=== PATIENT | male | born 1960 | race Caucasian/White ===

== ENCOUNTER 2019-04-26 06:28 | Inpatient (IN) | payer MEDICARE ==
[~2019-04-26] VITALS: Ht 185.4 cm; Wt 83.6 kg
--- NOTE | 2019-04-26 07:00 | NUR ---
REPORT TO NOE CASAS
--- NOTE | 2019-04-26 07:06 | NUR ---
BEDSIDE REPORT FROM MURTAZA RN, PT RESTING IN [facility]. AWAITING ORDERS FROM
[2019-04-26] MEDS ORDERED: DILTIAZEM 125 MG in SODIUM CHLORIDE 0.9% 100 ML IV SCH (07:13)
[2019-04-26] MEDS ORDERED: DILTIAZEM 5 MG/ML, 5ML ONE (07:28)
[2019-04-26] MEDS ORDERED: LORazepam 2 MG/ML, 1ML ONE (07:28)
[2019-04-26] MEDS ORDERED: LORazepam 2 MG/ML, 1ML IVPush ONE (07:30)
[2019-04-26] MEDS ORDERED: DILTIAZEM 5 MG/ML, 5ML IV ONE (07:30)
[2019-04-26] MEDS ORDERED: SODIUM CHLORIDE FLUSH 10ML SYR IVF ONE (07:30)
[2019-04-26 07:32] LABS: BASOPHILS # (AUTO) 0.04 x10^3/uL (0-0.1); BASOPHILS % (AUTO) 0 % (0-1); EOSINOPHILS # (AUTO) 0.03 x10^3/uL (0-0.4); EOSINOPHILS % (AUTO) 0 % (1-7); LYMPHOCYTES % (AUTO) 17 % (22-44); MD NO; MEAN CORPUSCULAR HEMOGLOBIN 31.8 pg (27.5-34.5); MEAN CORPUSCULAR HGB CONC 32.4 g/dL (33.2-36.2); MEAN CORPUSCULAR VOLUME 98.2 fL (81-97); MEAN PLATELET VOLUME 9.3 fL (7.4-10.4); MONOCYTES # (AUTO) 0.93 x10^3/uL (0.2-0.8); MONOCYTES % (AUTO) 8 % (2-9); NEUTROPHILS # (AUTO) 8.95 x10^3/uL (1.8-6.8); NEUTROPHILS % (AUTO) 74 % (42-75); PLATELET COUNT 334 x10^3/uL (130-400); RED BLOOD COUNT 4.62 x10^6/uL (4.38-5.82); RED CELL DISTRIBUTION WIDTH 14.5 % (9.4-14.8)
--- NOTE | 2019-04-26 07:37 | NUR ---
PT RSETING IN GURNEY, CARDIZEM AND ATIVAN GIVEN PER AUG, PT ON MONITOR. AWAITING CARDIZEM GTT FROM PHARMACY
[2019-04-26 07:40] LABS: ALBUMIN 3.2 g/dL (3.4-5.0); ANION GAP 6 mmol/L (5-15); CALCIUM 8.7 mg/dL (8.5-10.1); CHLORIDE 107 mmol/L (98-107); CREATININE 0.96 mg/dL (0.7-1.3)
[2019-04-26 07:45] LABS: TROPONIN I 0.084 ng/mL (0.000-0.045)
[2019-04-26 08:05] LABS: INTERNATIONAL NORMALIZED RATIO 4.44 (0.93-1.1)
--- NOTE | 2019-04-26 08:34 | NUR ---
PT RESTING IN [facility] GTT INFUSING. NO NEEDS AT THIS TIME. PT ON MONITOR
[2019-04-26] MEDS ORDERED: LISI5TAB7 PO (09:13)
[2019-04-26] MEDS ORDERED: MAGN400T36 PO (09:13)
[2019-04-26] MEDS ORDERED: UBID10CA5 PO (09:13)
[2019-04-26] MEDS ORDERED: WARF7.5T46 PO (09:13)
[2019-04-26] MEDS ORDERED: METO25TA2 PO (09:13)
[2019-04-26] MEDS ORDERED: TRAZ50TA66 PO (09:13)
[2019-04-26] MEDS ORDERED: SPIR25TA5 PO (09:13)
[2019-04-26] MEDS ORDERED: ZINC220C5 PO (09:13)
--- NOTE | 2019-04-26 09:57 | NUR ---
report to Danette LIU
[2019-04-26 10:32] VITALS: BP 119/85
[2019-04-26 10:58] VITALS: BP 110/65
[2019-04-26] MEDS ORDERED: ONDANSETRON 2MG/ML, 2ML IVPush PRN (11:30)
[2019-04-26] MEDS ORDERED: ONDANSETRON ODT 4 MG PO PRN (11:30)
[2019-04-26] MEDS ORDERED: SPIRONOLACTONE 25 MG TABLET PO SCH (11:30)
[2019-04-26] MEDS: DILTIAZEM 125 MG in SODIUM CHLORIDE 0.9% 100 ML IV SCH (11:30)
[2019-04-26] MEDS ORDERED: ACETAMINOPHEN 325 MG TABLET PO PRN (11:30)
[2019-04-26 11:58] LABS: FREE T4 (FREE THYROXINE) 1.44 ng/dL (0.76-1.46)
[2019-04-26] MEDS ORDERED: HOLD MEDICATION MC PRN (12:00)
[2019-04-26] MEDS: METOPROLOL SUCCINATE 25 MG TAB.ER.24H PO SCH (13:55)
[2019-04-26 14:14] LABS: TROPONIN I 0.061 ng/mL (0.000-0.045)
[2019-04-26 14:28] VITALS: BP 129/91
[2019-04-26] MEDS: hydrOXyzine 50MG TABLET PO PRN (17:10)
[2019-04-26 20:31] LABS: TROPONIN I 0.062 ng/mL (0.000-0.045)
[2019-04-26] MEDS: TRAZODONE 50MG TABLET PO SCH (20:31)
[2019-04-26 20:38] VITALS: BP 110/74
[2019-04-26] MEDS ORDERED: METO50TA82 PO (22:19)
[2019-04-26] MEDS ORDERED: ZOLP-413 PO (22:19)
[2019-04-26] MEDS ORDERED: MULT-658 PO (22:19)
[2019-04-26] MEDS: TEMAZEPAM 30 MG CAPSULE PO PRN (22:27)
[2019-04-27 03:16] VITALS: BP 115/76
[2019-04-27 05:43] LABS: BASOPHILS # (AUTO) 0.12 x10^3/uL (0-0.1); BASOPHILS % (AUTO) 1 % (0-1); EOSINOPHILS # (AUTO) 0.14 x10^3/uL (0-0.4); EOSINOPHILS % (AUTO) 1 % (1-7); LYMPHOCYTES # (AUTO) 2.12 x10^3/uL (1-3.4); LYMPHOCYTES % (AUTO) 20 % (22-44); MD NO; MEAN CORPUSCULAR HEMOGLOBIN 31.9 pg (27.5-34.5); MEAN CORPUSCULAR HGB CONC 32.5 g/dL (33.2-36.2); MEAN CORPUSCULAR VOLUME 98.3 fL (81-97); MEAN PLATELET VOLUME 8.8 fL (7.4-10.4); MONOCYTES # (AUTO) 0.83 x10^3/uL (0.2-0.8); MONOCYTES % (AUTO) 8 % (2-9); NEUTROPHILS # (AUTO) 7.48 x10^3/uL (1.8-6.8); NEUTROPHILS % (AUTO) 70 % (42-75); PLATELET COUNT 282 x10^3/uL (130-400); RED BLOOD COUNT 4.33 x10^6/uL (4.38-5.82); RED CELL DISTRIBUTION WIDTH 14.4 % (9.4-14.8)
[2019-04-27 05:56] LABS: ALBUMIN 2.9 g/dL (3.4-5.0); ANION GAP 7 mmol/L (5-15); CALCIUM 8.5 mg/dL (8.5-10.1); CHLORIDE 107 mmol/L (98-107)
[2019-04-27 06:00] LABS: ALANINE AMINOTRANSFERASE 383 U/L (12-78); ALKALINE PHOSPHATASE 121 U/L (45-117); BILIRUBIN,TOTAL 0.7 mg/dL (0.2-1.0); CHOL/HDL RATIO 6.4; CHOLESTEROL, TOTAL 161 mg/dL (140-239); CREATININE 0.76 mg/dL (0.7-1.3); HDL CHOL % 16 % (26-37); HDL CHOLESTEROL (DIRECT) 25 mg/dL (40-60); LDL CHOLESTEROL,CALCULATED 123 mg/dL (54-169); LDL/HDL RATIO 4.9 (0.5-3.0); TOTAL PROTEIN 6.1 g/dL (6.4-8.2); TRIGLYCERIDES 67 mg/dL (50-200); VLDL CHOLESTEROL 13 mg/dL (0-25)
[2019-04-27 06:19] LABS: INTERNATIONAL NORMALIZED RATIO 3.09 (0.93-1.1); PROTHROMBIN TIME 31.1 Seconds (9.6-11.5)
[2019-04-27 07:08] VITALS: BP 122/89
[2019-04-27] MEDS: SPIRONOLACTONE 25 MG TABLET PO SCH (10:02)
[2019-04-27] MEDS: LISINOPRIL 5 MG TABLET PO SCH (10:03)
[2019-04-27] MEDS: METOPROLOL SUCCINATE 25 MG TAB.ER.24H PO SCH (10:04)
[2019-04-27] MEDS: DILTIAZEM 125 MG in SODIUM CHLORIDE 0.9% 100 ML IV SCH (10:49)
[2019-04-27 14:04] VITALS: BP 128/88
[2019-04-27] MEDS: hydrOXyzine 50MG TABLET PO PRN (14:29)
[2019-04-27] MEDS: DILTIAZEM 30 MG TABLET PO SCH ×2 (16:43→20:21)
[2019-04-27] MEDS ORDERED: WARFARIN 2.5 MG TABLET PO-COUM ONE (18:00)
[2019-04-27 18:56] VITALS: BP 112/80
[2019-04-27] MEDS: TRAZODONE 50MG TABLET PO SCH (20:21)
[2019-04-27] MEDS: TEMAZEPAM 30 MG CAPSULE PO PRN (21:40)
[2019-04-28 03:25] VITALS: BP 103/66
[2019-04-28 05:39] LABS: BASOPHILS # (AUTO) 0.07 x10^3/uL (0-0.1); BASOPHILS % (AUTO) 1 % (0-1); EOSINOPHILS # (AUTO) 0.16 x10^3/uL (0-0.4); EOSINOPHILS % (AUTO) 1 % (1-7); LYMPHOCYTES # (AUTO) 2.63 x10^3/uL (1-3.4); LYMPHOCYTES % (AUTO) 21 % (22-44); MD NO; MEAN CORPUSCULAR HEMOGLOBIN 32.1 pg (27.5-34.5); MEAN CORPUSCULAR HGB CONC 31.9 g/dL (33.2-36.2); MEAN CORPUSCULAR VOLUME 100.4 fL (81-97); MEAN PLATELET VOLUME 8.8 fL (7.4-10.4); MONOCYTES % (AUTO) 9 % (2-9); NEUTROPHILS # (AUTO) 8.52 x10^3/uL (1.8-6.8); NEUTROPHILS % (AUTO) 68 % (42-75); PLATELET COUNT 293 x10^3/uL (130-400); RED BLOOD COUNT 4.44 x10^6/uL (4.38-5.82); RED CELL DISTRIBUTION WIDTH 14.5 % (9.4-14.8)
[2019-04-28 05:43] LABS: INTERNATIONAL NORMALIZED RATIO 2.33 (0.93-1.1); PROTHROMBIN TIME 23.7 Seconds (9.6-11.5)
[2019-04-28 05:49] LABS: ANION GAP 5 mmol/L (5-15); CALCIUM 8.8 mg/dL (8.5-10.1); CHLORIDE 104 mmol/L (98-107); CREATININE 0.87 mg/dL (0.7-1.3)
[2019-04-28 07:01] VITALS: BP 122/85
[2019-04-28] MEDS ORDERED: METOPROLOL SUCCINATE 100 MG TAB.ER.24H PO SCH (07:30)
[2019-04-28] MEDS: DILTIAZEM 30 MG TABLET PO SCH (07:50)
[2019-04-28] MEDS: LISINOPRIL 5 MG TABLET PO SCH (07:50)
[2019-04-28] MEDS: SPIRONOLACTONE 25 MG TABLET PO SCH (07:50)
[2019-04-28] MEDS: DILTIAZEM 60 MG TABLET PO SCH ×2 (08:28→15:08)
[2019-04-28] MEDS: hydrOXyzine 50MG TABLET PO PRN (11:02)
[2019-04-28] MEDS ORDERED: DILTIAZEM 125 MG in SODIUM CHLORIDE 0.9% 100 ML IV SCH (11:30)
[2019-04-28 12:51] VITALS: BP 128/80
[2019-04-28] MEDS ORDERED: MAGNESIUM SULFATE PMX 2GM/50ML 50 ML IV ONE (15:00)
[2019-04-28] MEDS ORDERED: LORazepam 2 MG/ML, 1ML IM PRN (15:00)
[2019-04-28] MEDS ORDERED: WARFARIN 5 MG TABLET PO-COUM ONE (18:00)
[2019-05-05] MEDS ORDERED: LORA-445 PO (02:44)
[2019-05-09] MEDS ORDERED: ASPI-515 PO (14:08)
[2019-05-09] MEDS ORDERED: METO50TA82 PO (14:08)
[2019-05-09] MEDS ORDERED: CEFD300C37 PO (14:08)
[2019-05-09] MEDS ORDERED: DIGO125T PO (14:08)
[2019-05-09] MEDS ORDERED: DOXY100T PO (14:08)
== END 2019-04-28 18:03 | disposition left against medical advice (07) | DRG 309 ==
LOC: ED 07:17 → EDIP 09:39 → 5SO 10:08
PROVIDERS: ADMIT Internal Medicine; ATTEND Family Medicine
DX: I48.20 Chronic atrial fibrillation, unspecified (principal); D68.59 Other primary thrombophilia; J98.11 Atelectasis; I24.8 Other forms of acute ischemic heart disease; D72.829 Elevated white blood cell count, unspecified; F41.9 Anxiety disorder, unspecified; G47.00 Insomnia, unspecified; I11.0 Hypertensive heart disease with heart failure; I50.9 Heart failure, unspecified; Z79.01 Long term (current) use of anticoagulants; Z86.711 Personal history of pulmonary embolism
CPT/HCPCS: 36415; 71045; 80048; 80053; 80061; 80069; 82040; 83735; 83880; 84439; 84443; 84484; 85025; 85610; 93005; 93306; G0378; J2060; J3475

== ENCOUNTER 2019-09-04 15:46 | Inpatient (IN) | payer MEDICARE ==
[~2019-09-04] VITALS: Ht 185.4 cm; Wt 96.5 kg
[~2019-09-04 15:46] MED LIST: ASPI-515 PO; CEFD300C37 PO; DIGO125T85 PO; DOXY100T PO; LISI5TAB7 PO; LORA-445 PO; MAGN400T36 PO; METO25TA2 PO; METO50TA82 PO; MULT-658 PO; SPIR25TA5 PO; TRAZ50TA66 PO; UBID10CA5 PO; WARF7.5T46 PO; ZINC220C7 PO; ZOLP-413 PO
--- NOTE | 2019-09-04 16:05 | NUR ---
HX CHF, "RECENTLY RAN OUT OF LASIX A FEW DAYS AGO. I FEEL THE FLUID BUILDING." 4-5 word sentences, coarse to bases bialterally
[2019-09-04] MEDS ORDERED: SODIUM CHLORIDE FLUSH 10ML SYR IVF ONE (16:30)
[2019-09-04 16:53] LABS: BASOPHILS # (AUTO) 0.03 x10^3/uL (0-0.1); BASOPHILS % (AUTO) 1 % (0-1); EOSINOPHILS # (AUTO) 0.13 x10^3/uL (0-0.4); EOSINOPHILS % (AUTO) 2 % (1-7); LYMPHOCYTES # (AUTO) 1.53 x10^3/uL (1-3.4); LYMPHOCYTES % (AUTO) 23 % (22-44); MD NO; MEAN CORPUSCULAR HEMOGLOBIN 30.8 pg (27.5-34.5); MEAN CORPUSCULAR HGB CONC 32.1 g/dL (33.2-36.2); MEAN CORPUSCULAR VOLUME 95.9 fL (81-97); MEAN PLATELET VOLUME 8.1 fL (7.4-10.4); MONOCYTES # (AUTO) 0.51 x10^3/uL (0.2-0.8); MONOCYTES % (AUTO) 8 % (2-9); NEUTROPHILS # (AUTO) 4.52 x10^3/uL (1.8-6.8); NEUTROPHILS % (AUTO) 67 % (42-75); PLATELET COUNT 195 x10^3/uL (130-400); RED BLOOD COUNT 5.61 x10^6/uL (4.38-5.82); RED CELL DISTRIBUTION WIDTH 20.7 % (9.4-14.8)
[2019-09-04 17:05] LABS: ALANINE AMINOTRANSFERASE 28 U/L (12-78); ANION GAP 4 mmol/L (5-15); CALCIUM 8.9 mg/dL (8.5-10.1); CHLORIDE 99 mmol/L (98-107); CREATININE 0.95 mg/dL (0.7-1.3)
[2019-09-04 17:09] LABS: ALKALINE PHOSPHATASE 124 U/L (45-117); BILIRUBIN,TOTAL 1.3 mg/dL (0.2-1.0); TOTAL PROTEIN 7.1 g/dL (6.4-8.2); TROPONIN I 0.104 ng/mL (0.000-0.045)
[2019-09-04] MEDS ORDERED: NITROGLYCERIN OINT 2%, 1GM TP ONE ×2 (17:30→18:05)
[2019-09-04] MEDS ORDERED: FUROSEMIDE 40 MG/4 ML IVPush ONE (17:30)
--- NOTE | 2019-09-04 17:49 | NUR ---
Piv placed Attempted to complete med recc-patient unsure of meds/doses Called pharmacy (ta in [place])- patient only taking: lasix 40 qday, xanax 1mg qday prn, digoxin 125mch qday, carvedilol 6.25mg bid. Patient has not picked up his ordered aspirin, lisinopril, spiranolactone, aspirin, potassium or warfarin in months Additionally patient has been taking 40mg of lasix BID instead of ordered qday "for weeks"
[2019-09-04] MEDS ORDERED: ASPIRIN 81 MG TABLET CHEW PO ONE (18:00)
[2019-09-04] MEDS ORDERED: ALPR0.5T PO (18:00)
[2019-09-04] MEDS ORDERED: CARV6.2512 PO (18:00)
[2019-09-04] MEDS ORDERED: ENOXAPARIN 100 MG/ML SQ ONE (18:00)
[2019-09-04] MEDS ORDERED: FUROSEMIDE 40 MG/4 ML ONE (18:04)
[2019-09-04] MEDS ORDERED: ASPIRIN 81 MG TABLET CHEW ONE (18:05)
[2019-09-04] MEDS ORDERED: ENOXAPARIN 100 MG/ML ONE (18:05)
--- NOTE | 2019-09-04 18:30 | NUR ---
IV MEDICATIONS GIVEN WITHOUT DIFF. PT RESTING IN BED. ADMITTING DOCTOR AT BEDSIDE TO PERFORM ASSESSMENT.
[2019-09-04] MEDS ORDERED: GUAIFENESIN/DM 200-20MG, 10ML UDC PO PRN (19:00)
[2019-09-04] MEDS ORDERED: ONDANSETRON ODT 4 MG PO PRN (19:00)
[2019-09-04] MEDS ORDERED: BISACODYL 10 MG SUPP PR PRN (19:00)
[2019-09-04] MEDS ORDERED: ACETAMINOPHEN 325 MG TABLET PO PRN (19:00)
[2019-09-04] MEDS ORDERED: POLYETHYLENE GLYCOL 17 GM PACKET PO PRN (19:00)
[2019-09-04 19:13] LABS: INTERNATIONAL NORMALIZED RATIO 1.32 (0.93-1.1)
--- NOTE | 2019-09-04 19:30 | NUR ---
PT RESTING. AWAITING ROOM FOR TRANSPORT.
--- NOTE | 2019-09-04 20:25 | NUR ---
REPORT CALLED TO LENO LIU. PT HAD A BM ACCIDENT IN BED. RN IN TO CLEAN PATIENT. PT NOW READY FOR TRANSPORT.
[2019-09-04] MEDS: CARVEDILOL 6.25 MG TABLET PO SCH (21:29)
[2019-09-04] MEDS ORDERED: WARFARIN 7.5 MG TABLET PO-COUM ONE (21:30)
[2019-09-04] MEDS: CEFTRIAXONE PMX 1GM/50ML 50 ML IV SCH (21:30)
[2019-09-04] MEDS: SODIUM CHLORIDE FLUSH 10ML SYR IVF SCH (21:30)
[2019-09-04 21:46] VITALS: BP 115/71
[2019-09-04] MEDS: AZITHROMYCIN 500 MG in SODIUM CHLORIDE 0.9% 250 ML IV SCH (22:18)
[2019-09-04 23:33] LABS: TROPONIN I 0.077 ng/mL (0.000-0.045)
[2019-09-05 02:00] VITALS: BP 109/76
[2019-09-05] MEDS: ASPIRIN 81 MG TABLET EC PO SCH (05:08)
[2019-09-05 05:30] LABS: BASOPHILS % (AUTO) 0 % (0-1); EOSINOPHILS # (AUTO) 0.15 x10^3/uL (0-0.4); EOSINOPHILS % (AUTO) 2 % (1-7); LYMPHOCYTES # (AUTO) 2.11 x10^3/uL (1-3.4); LYMPHOCYTES % (AUTO) 32 % (22-44); MD NO; MEAN CORPUSCULAR HEMOGLOBIN 30.4 pg (27.5-34.5); MEAN CORPUSCULAR HGB CONC 31.9 g/dL (33.2-36.2); MEAN CORPUSCULAR VOLUME 95.2 fL (81-97); MEAN PLATELET VOLUME 8.8 fL (7.4-10.4); MONOCYTES # (AUTO) 0.41 x10^3/uL (0.2-0.8); MONOCYTES % (AUTO) 6 % (2-9); NEUTROPHILS # (AUTO) 3.93 x10^3/uL (1.8-6.8); NEUTROPHILS % (AUTO) 60 % (42-75); PLATELET COUNT 199 x10^3/uL (130-400); RED BLOOD COUNT 5.16 x10^6/uL (4.38-5.82); RED CELL DISTRIBUTION WIDTH 21.3 % (9.4-14.8)
[2019-09-05 05:31] LABS: INTERNATIONAL NORMALIZED RATIO 1.26 (0.93-1.1); PROTHROMBIN TIME 13.4 Seconds (9.6-11.5)
[2019-09-05 05:36] LABS: CHLORIDE 101 mmol/L (98-107)
[2019-09-05 05:44] LABS: ANION GAP 3 mmol/L (5-15); CREATININE 1.03 mg/dL (0.7-1.3); TROPONIN I 0.068 ng/mL (0.000-0.045)
[2019-09-05] MEDS ORDERED: Enoxaparin 1 mg/kg protocol SQ SCH (07:30)
[2019-09-05 07:36] VITALS: BP 109/81
[2019-09-05] MEDS: SENNA/DOCUSATE TABLET PO SCH (09:00)
[2019-09-05] MEDS: SODIUM CHLORIDE FLUSH 10ML SYR IVF SCH ×2 (09:19→20:37)
[2019-09-05] MEDS: FUROSEMIDE 40 MG/4 ML IV SCH ×2 (09:19→16:41)
[2019-09-05] MEDS: MAGNESIUM OXIDE 400 MG TABLET PO SCH (09:19)
[2019-09-05] MEDS: ZINC SULFATE 220 MG CAPSULE PO SCH (09:20)
[2019-09-05] MEDS: DIGOXIN 0.125 MG TABLET PO SCH (09:20)
[2019-09-05] MEDS: CARVEDILOL 6.25 MG TABLET PO SCH ×2 (09:20→20:36)
[2019-09-05] MEDS: ENOXAPARIN 100 MG/ML SQ SCH ×2 (09:21→20:36)
[2019-09-05] MEDS: LISINOPRIL 5 MG TABLET PO SCH (09:21)
[2019-09-05] MEDS: MULTIVITAMIN 1 TABLET PO SCH (09:21)
[2019-09-05 14:00] VITALS: BP 124/79
[2019-09-05 19:52] VITALS: BP 147/112
[2019-09-05 20:30] VITALS: BP 154/86
[2019-09-05] MEDS: AZITHROMYCIN 500 MG in SODIUM CHLORIDE 0.9% 250 ML IV SCH (20:37)
[2019-09-05] MEDS: CEFTRIAXONE PMX 1GM/50ML 50 ML IV SCH (22:08)
[2019-09-06 01:07] VITALS: BP 122/81
[2019-09-06] MEDS: CARVEDILOL 6.25 MG TABLET PO SCH ×2 (02:45→20:41)
[2019-09-06] MEDS: ASPIRIN 81 MG TABLET EC PO SCH (05:44)
[2019-09-06 06:08] LABS: INTERNATIONAL NORMALIZED RATIO 1.3 (0.93-1.1); PROTHROMBIN TIME 13.8 Seconds (9.6-11.5)
[2019-09-06 06:12] LABS: ANION GAP 4 mmol/L (5-15); CHLORIDE 102 mmol/L (98-107); CREATININE 0.73 mg/dL (0.7-1.3)
[2019-09-06 07:20] VITALS: BP 147/97
[2019-09-06] MEDS: FUROSEMIDE 40 MG/4 ML IV SCH ×2 (07:30→16:35)
[2019-09-06] MEDS: MULTIVITAMIN 1 TABLET PO SCH (09:18)
[2019-09-06] MEDS: ZINC SULFATE 220 MG CAPSULE PO SCH (09:18)
[2019-09-06] MEDS: MAGNESIUM OXIDE 400 MG TABLET PO SCH (09:19)
[2019-09-06] MEDS: DIGOXIN 0.125 MG TABLET PO SCH (09:19)
[2019-09-06] MEDS: ENOXAPARIN 100 MG/ML SQ SCH ×2 (09:21→20:40)
[2019-09-06] MEDS: SODIUM CHLORIDE FLUSH 10ML SYR IVF SCH ×2 (09:22→20:40)
[2019-09-06] MEDS: SENNA/DOCUSATE TABLET PO SCH (09:22)
[2019-09-06] MEDS ORDERED: POTASSIUM CHLORIDE 20 MEQ TAB.ER.PRT PO ONE (09:30)
[2019-09-06 12:20] VITALS: BP 129/75
[2019-09-06] MEDS ORDERED: WARFARIN 7.5 MG TABLET PO-COUM ONE (18:00)
[2019-09-06 20:27] VITALS: BP 134/94
[2019-09-06] MEDS: AZITHROMYCIN 500 MG in SODIUM CHLORIDE 0.9% 250 ML IV SCH (20:40)
[2019-09-06] MEDS: CEFTRIAXONE PMX 1GM/50ML 50 ML IV SCH (22:40)
[2019-09-07] MEDS: FUROSEMIDE 40 MG/4 ML IV SCH ×2 (02:21→09:23)
[2019-09-07 02:46] VITALS: BP 126/73
[2019-09-07 05:38] LABS: INTERNATIONAL NORMALIZED RATIO 1.33 (0.93-1.1); PROTHROMBIN TIME 14.1 Seconds (9.6-11.5)
[2019-09-07 05:47] LABS: CHLORIDE 98 mmol/L (98-107)
[2019-09-07 05:53] LABS: ANION GAP 6 mmol/L (5-15); CALCIUM 8.9 mg/dL (8.5-10.1); CREATININE 0.74 mg/dL (0.7-1.3)
[2019-09-07] MEDS: ASPIRIN 81 MG TABLET EC PO SCH (06:32)
[2019-09-07 07:00] VITALS: BP 135/85
[2019-09-07] MEDS ORDERED: POTASSIUM CHLORIDE 20 MEQ TAB.ER.PRT PO SCH (08:00)
[2019-09-07] MEDS: SENNA/DOCUSATE TABLET PO SCH (09:00)
[2019-09-07] MEDS: ZINC SULFATE 220 MG CAPSULE PO SCH (09:23)
[2019-09-07] MEDS: LISINOPRIL 5 MG TABLET PO SCH (09:23)
[2019-09-07] MEDS: DIGOXIN 0.125 MG TABLET PO SCH (09:24)
[2019-09-07] MEDS: MAGNESIUM OXIDE 400 MG TABLET PO SCH (09:24)
[2019-09-07] MEDS: SODIUM CHLORIDE FLUSH 10ML SYR IVF SCH (09:25)
[2019-09-07] MEDS: CARVEDILOL 6.25 MG TABLET PO SCH (09:25)
[2019-09-07] MEDS: MULTIVITAMIN 1 TABLET PO SCH (09:25)
[2019-09-07] MEDS: ENOXAPARIN 100 MG/ML SQ SCH (09:26)
[2019-09-07 12:00] VITALS: BP 109/76
[2019-09-07] MEDS ORDERED: WARFARIN MODERAT DOSE PROTOCOL XX SCH (12:00)
[2019-09-07] MEDS ORDERED: WARF-36 PO (12:02)
[2019-09-07] MEDS ORDERED: ASPI-515 PO (12:02)
[2019-09-07] MEDS ORDERED: SPIR25TA5 PO (12:02)
[2019-09-07] MEDS ORDERED: DIGO125T85 PO (12:02)
[2019-09-07] MEDS ORDERED: LISI5TAB7 PO (12:02)
[2019-09-07] MEDS ORDERED: CARV6.2512 PO (12:02)
[2019-09-07] MEDS ORDERED: FURO20TA3 PO (12:02)
[2019-09-07] MEDS ORDERED: CEFP200T PO (12:02)
[2019-09-07] MEDS ORDERED: DOXY100T PO (12:10)
[2019-09-07] MEDS ORDERED: SIMV20TA19 PO (12:10)
[2019-09-07] MEDS ORDERED: WARFARIN 7.5 MG TABLET PO-COUM ONE (18:00)
[2019-09-08] MEDS ORDERED: WARFARIN MODERAT DOSE PROTOCOL XX SCH (12:00)
== END 2019-09-07 15:35 | disposition home or self-care (01) | DRG 177 ==
LOC: ED 16:10 → EDIP 18:00 → 5SO 20:34
PROVIDERS: ADMIT Internal Medicine; ATTEND Internal Medicine
DX: J15.6 Pneumonia due to other Gram-negative bacteria (principal); I21.A1 Myocardial infarction type 2; I50.23 Acute on chronic systolic (congestive) heart failure; D68.69 Other thrombophilia; I48.20 Chronic atrial fibrillation, unspecified; I11.0 Hypertensive heart disease with heart failure; E87.6 Hypokalemia; F41.9 Anxiety disorder, unspecified; G47.00 Insomnia, unspecified; I34.0 Nonrheumatic mitral (valve) insufficiency; Z79.01 Long term (current) use of anticoagulants; Z79.899 Other long term (current) drug therapy; Z86.711 Personal history of pulmonary embolism; Z91.14 Patient's other noncompliance with medication regimen; Z91.19 Patient's noncompliance with other medical treatment and regimen
CPT/HCPCS: 36415; 71045; 80048; 80053; 80162; 83735; 83880; 84484; 85025; 85610; 87070; 87147; 87205; 93005; 93306; 99285; G0378; J0456; J0696; J1650; J1940; J7050

== ENCOUNTER 2020-12-18 08:25 | Emergency (ER) | payer MEDICARE ==
[~2020-12-18] VITALS: Ht 177.8 cm; Wt 80.0 kg
[~2020-12-18 08:25] MED LIST changes: +ALPR0.5T PO; +APIX5TAB PO; -ASPI-515 PO; +ASPI-963 PO; +CARV6.2512 PO; +CEFP200T PO; +FURO20TA3 PO; +SIMV20TA19 PO; +WARF-36 PO
--- NOTE | 2020-12-18 08:31 | NUR ---
PT BIBA FROM HOME FOR C/O SOB & INCREASED WEAKNESS. PT WAS AT [facility] FROM -SATURDAY FOR RESPIRATORY INFECTION, DC ON MEDICATION BUT NON-COMPLIANT. PT STATES HE IS NON-COMPLIANT WITH ALL MEDICATIONS AND CHOOSES NATUROPATHIC MEDICATIONS INSTEAD. PT A-FIB ON MONITOR, RA 90% WHICH IS BASELINE FOR PT, DOES NOT USE O2 AT HOME. PT CHANGED INTO GOWN, MONITORS IN PLACE. CALL LIGHT WITHIN REACH. BED IN LOWEST POSITION. BED RAILS UP X2
--- NOTE | 2020-12-18 09:05 | NUR ---
ERP AT BS FOR EVAL
--- NOTE | 2020-12-18 09:19 | NUR ---
xray at bs
[2020-12-18] MEDS ORDERED: METOPROLOL TARTRATE 25 MG TAB ONE (09:20)
[2020-12-18] MEDS ORDERED: ALBUTEROL SULFATE 2.5 MG/3 ML ONE (09:20)
--- NOTE | 2020-12-18 09:27 | NUR ---
PT MEDICATED PER EMAR. NADN. CALL LIGHT WITHIN REACH. COMFORT MEASURES PROVIDED. BED IN LOWEST POSITION, BED RAILS UP X2.
[2020-12-18] MEDS ORDERED: SODIUM CHLORIDE FLUSH 10ML SYR IVF ONE (09:30)
[2020-12-18] MEDS ORDERED: ALBUTEROL SULFATE 2.5 MG/3 ML NPPB ONE (09:30)
[2020-12-18] MEDS ORDERED: METOPROLOL TARTRATE 25 MG TAB PO ONE (09:30)
[2020-12-18 09:54] LABS: BASOPHILS % (AUTO) 0 % (0-1); EOSINOPHILS % (AUTO) 0 % (1-7); LYMPHOCYTES % (AUTO) 15 % (22-44); MEAN CORPUSCULAR HEMOGLOBIN 32.6 pg (27.5-34.5); MEAN CORPUSCULAR HGB CONC 33.5 g/dL (33.2-36.2); MEAN PLATELET VOLUME 8.7 fL (7.4-10.4); MONOCYTES % (AUTO) 11 % (2-9); NEUTROPHILS % (AUTO) 74 % (42-75); PLATELET COUNT 108 x10^3/uL (130-400); RED BLOOD COUNT 5.25 x10^6/uL (4.38-5.82); RED CELL DISTRIBUTION WIDTH 18.7 % (9.4-14.8)
--- NOTE | 2020-12-18 10:03 | NUR ---
PT RESTING COMFORTABLY ON [place] [facility]. CALL LIGHT WITHIN REACH. PT DENIES PAIN. COMFORT MEASURES PROVIDED. BED IN LOWEST POSITION, BED RAILS UP X2. NO NEEDS AT THIS TIME
[2020-12-18 10:04] LABS: ALBUMIN 3.4 g/dL (3.4-5.0); ANION GAP 10 mmol/L (5-15); CALCIUM 9.6 mg/dL (8.5-10.1); CHLORIDE 98 mmol/L (98-107); CREATININE 1.64 mg/dL (0.7-1.3)
[2020-12-18] MEDS ORDERED: SODIUM CHLORIDE 0.9% 1,000ML IVBOLUS ONE ×2 (11:00→13:00)
[2020-12-18 12:04] VITALS: BP 92/68
[2020-12-18] MEDS ORDERED: ALBUTEROL/IPRATROPIUM 2.5MG/0.5MG, 3 ML NEB ONE (13:00)
[2020-12-18] MEDS ORDERED: METOPROLOL 1 MG/ML, 5ML IVPush ONE (13:00)
== END 2020-12-18 14:19 | disposition home or self-care (01) ==
LOC: ED 08:50
DX: J44.1 Chronic obstructive pulmonary disease with (acute) exacerbation (principal); E86.0 Dehydration; I48.20 Chronic atrial fibrillation, unspecified; E87.1 Hypo-osmolality and hyponatremia; E87.5 Hyperkalemia; Z91.14 Patient's other noncompliance with medication regimen; I11.0 Hypertensive heart disease with heart failure; I50.9 Heart failure, unspecified; I25.2 Old myocardial infarction; Z87.891 Personal history of nicotine dependence
CPT/HCPCS: 36415; 71045; 80048; 82040; 85025; 93005; 94640; 96361; 96374; 99285; J7030; J7613